=== PATIENT | female | born 1960 | race Caucasian/White ===

== ENCOUNTER → 2023-10-12 07:13 | Outpatient (REF) | payer OTHER, SELFPAY | LOC: DHCBC/DCA 07:13 | PROVIDERS: ATTENDING PHYSICIAN Internal Medicine Interventional Cardiology; FAMILY PHYSICIAN Nurse Practitioner Adult Health | DX: R07.9 Chest pain, unspecified (principal) | CPT/HCPCS: 78452; 93017; A9500 ==

== ENCOUNTER → 2023-11-03 07:19 | Outpatient (REF) | payer OTHER, SELFPAY | LOC: HWRAD 07:19 | PROVIDERS: ATTENDING PHYSICIAN Nurse Practitioner Adult Health | DX: R74.8 Abnormal levels of other serum enzymes (principal); R74.01 Elevation of levels of liver transaminase levels; R07.89 Other chest pain | CPT/HCPCS: 76700 ==

== ENCOUNTER → 2023-11-04 06:34 | Day surgery (SDC) | payer OTHER, SELFPAY | LOC: GI 06:34 | PROVIDERS: ATTENDING PHYSICIAN Internal Medicine Gastroenterology; FAMILY PHYSICIAN Nurse Practitioner Adult Health | DX: R13.10 Dysphagia, unspecified (principal); R07.9 Chest pain, unspecified; K44.9 Diaphragmatic hernia without obstruction or gangrene; Q39.9 Congenital malformation of esophagus, unspecified; K29.50 Unspecified chronic gastritis without bleeding; D72.820 Lymphocytosis (symptomatic) | CPT/HCPCS: 43239; 88305; 88341; 88342 ==

== ENCOUNTER → 2023-11-09 16:21 | Outpatient (REF) | payer OTHER, SELFPAY | LOC: WDC 16:21 | PROVIDERS: ATTENDING PHYSICIAN Nurse Practitioner Adult Health | DX: Z12.31 Encounter for screening mammogram for malignant neoplasm of breast (principal) | CPT/HCPCS: 77063; 77067 ==

== ENCOUNTER → 2023-11-11 13:39 | Outpatient (REF) | payer OTHER, SELFPAY | LOC: DHCBS HW 13:39 | PROVIDERS: ATTENDING PHYSICIAN Internal Medicine Interventional Cardiology; FAMILY PHYSICIAN Nurse Practitioner Adult Health | DX: R07.9 Chest pain, unspecified (principal) | CPT/HCPCS: 93306 ==

== ENCOUNTER → 2023-11-12 08:31 | Outpatient (REF) | payer OTHER, SELFPAY | LOC: RAD 08:31 | PROVIDERS: ATTENDING PHYSICIAN Internal Medicine Gastroenterology; FAMILY PHYSICIAN Nurse Practitioner Adult Health | DX: R13.19 Other dysphagia (principal) | CPT/HCPCS: 74221 ==

== ENCOUNTER → 2023-11-16 06:24 | Day surgery (SDC) | payer OTHER, SELFPAY | LOC: GI 06:24 | PROVIDERS: ATTENDING PHYSICIAN Internal Medicine Gastroenterology; FAMILY PHYSICIAN Nurse Practitioner Adult Health | DX: K22.2 Esophageal obstruction (principal); K44.9 Diaphragmatic hernia without obstruction or gangrene; R13.14 Dysphagia, pharyngoesophageal phase; R07.9 Chest pain, unspecified; R93.3 Abnormal findings on diagnostic imaging of other parts of digestive tract | CPT/HCPCS: 43249 ==

== ENCOUNTER → 2023-12-10 08:00 | Outpatient (REF) | payer OTHER, SELFPAY | LOC: RAD 08:00 | PROVIDERS: ATTENDING PHYSICIAN Physician Assistant; FAMILY PHYSICIAN Nurse Practitioner Adult Health | DX: R68.81 Early satiety (principal) | CPT/HCPCS: 78264; A9541 ==

== ENCOUNTER 2024-03-09 06:26 | Day surgery (SDC) | payer OTHER, SELFPAY ==
[2024-02-25 09:45] LABS: Hematocrit 35.8 % (37.0-47.0); Hemoglobin 12.5 g/dL (12.0-16.0); Mean Corp Hgb Conc. 34.9 g/dL (33.0-37.0); Mean Corpuscular Hgb 30.6 pg (27.0-31.0); Mean Corpuscular Volume 87.7 fL (81.0-99.0); Mean Platelet Volume 9.4 fL (7.4-10.4); Platelet Count 295 10^3/uL (130-400); Red Blood Cell Count 4.08 10^6/uL (4.20-5.40); Red Cell Dist. Width 13.6 % (11.5-14.5); White Blood Cell Count 5.6 10^3/uL (4.8-10.8)
[2024-02-25 10:28] LABS: Blood Urea Nitrogen 16 mg/dl (7-17); Calcium 9.7 mg/dl (8.4-10.2); Carbon Dioxide 35 mmol/L (22-30); Chloride 100 mmol/L (98-107); Glucose 96 mg/dl (70-99); Potassium 3.4 mmol/L (3.5-5.1); Sodium 138 mmol/L (135-145); eGFR > 60.00
[2024-02-25 10:34] VITALS: BMI 33.3
[2024-03-09] VITALS (11 sets, daily range): BP systolic 128–168; BP diastolic 76–89; BMI 33.3
[2024-03-09] MEDS: TYLENOL 1000 MG PO (10:15)
[2024-03-09] MEDS: NORMOSOL-R 1000 IV ×2 (10:27→16:32)
--- NOTE | 2024-03-09 15:26 | W.IMMPOSTOP ---
Addendum entered and electronically signed by Diaz Galicia MD 03/11/24 09:05:
[facility]# [id number]
Original Note:
Surgical Immed Post Op Note
-
Primary Surgeon: Frida
Assisting Surgeon: JULIUS Barcenas
Pre-op Diagnosis: Paraesophageal hernia and LUQ abdominal wall mass
Post-op Diagnosis: Paraesophageal hernia and LUQ abdominal wall mass
Procedure Performed: Laparoscopic paraesophageal hernia repair with Augustina fundoplication, intra-operative EGD, excision of LUQ abdominal wall mass
Anesthesia Type: General
Specimen / Cultures:
1. Abdominal wall mass
Estimated Blood Loss: 23 cc
Complications: None
Operative Findings:
1. Moderate PEH with 50% of stomach in chest, tight, dense omental and LEFT crural adhesions
2. > 3 cm esophageal mobilization, bl vagi identified, no pleural violation
3. Psoterior crural closure with 0 silk (2 pledget, 2 non-pledget)
4. 2 cm loose floppy Augustina fundoplication over 56 Fr Bougie
5. Post-repair EGD with no stricturing and appropriately oriented fundoplication
[2024-03-09] MEDS: DILAUDID 0.25 MG IV ×2 (16:01→16:23)
--- NOTE | 2024-03-09 17:28 | PTCARENOTE ---
Received pt from PACU in bed. VSS. AOx3, slightly drowsy. 99% on 2L NC. 5 lap sites ANAT w/ Dermabond on abdomen. Assessment and admission as documented.
[2024-03-09 17:47] LABS: Hematocrit 35.4 % (37.0-47.0); Hemoglobin 12.5 g/dL (12.0-16.0); Mean Corp Hgb Conc. 35.3 g/dL (33.0-37.0); Mean Corpuscular Hgb 30.3 pg (27.0-31.0); Mean Corpuscular Volume 85.7 fL (81.0-99.0); Platelet Count 258 10^3/uL (130-400); Red Blood Cell Count 4.13 10^6/uL (4.20-5.40); Red Cell Dist. Width 13.6 % (11.5-14.5)
[2024-03-09] MEDS: OFIRMEV 100 IV (17:51)
[2024-03-09] MEDS: DILAUDID 0.5 MG IV (20:29)
[2024-03-10] MEDS: OFIRMEV 100 IV ×3 (00:41→13:02)
[2024-03-10] MEDS: DILAUDID 0.5 MG IV ×5 (00:42→17:51)
[2024-03-10] MEDS: NORMOSOL-R 1000 IV ×2 (02:40→13:04)
[2024-03-10 03:39] VITALS: BP 138/72
--- NOTE | 2024-03-10 07:26 | W.PN.GS2 ---
Today's Communication / Plan
-
-- Dietary progression throughout the day clears --> fulls --> IDDM soft food
-- Pain control: Tylenol, IV Dilaudid, will start PO Oxycodone and Toradol if Hb OK on labs
-- Home medications
-- DC today pending progression
Assessment / Plan
-
Patient is a 63 yo F POD#1 s/p laparoscopic paraesophageal hernia repair and Augustina fundoplication, intraoperative EGD, excision of LUQ abdominal wall mass
Recovering well. No postoperative concerns.
-- Dietary progression throughout the day clears --> fulls --> IDDM soft food
-- Pain control: Tylenol, IV Dilaudid, will start PO Oxycodone and Toradol if Hb OK on labs
-- Continue IVF
-- OOB/ambulate
-- Home medications
-- DVT: Lovenox
-- DC today pending progression
Subjective Data
-
Date of Service: March 10, 2024
Reports on chest and shoulder soreness. Denies any nausea or vomiting. No reflux symptoms. No dizziness or lightheadedness. No fevers. Voiding. Minimal ambulation.
Objective Data
-
Intake and Output
03/09/24 03/10/24 03/11/24
06:59 06:59 06:59
Intake Total 1730 / 1730
Output Total 400 / 400
Balance 1330 / 1330
Intake:
Oral fluids 5 / 5
IV fluids (Total) 1525 / 1525
Norm 75 / 75
Normosol-R 1,000 ml @ 100 mls/ 50 / 50
hr IV .Q10H LUCY Rx#:[id number]
IV piggybacks 200 / 200
Output:
Urine, Webb 400 / 400
Other:
Number of approximated MODERATE 2
amounts of urine
Vital Signs
Temp Pulse Resp BP Pulse Ox
98.3 F 66 16 138/72 92
03/10/24 03:39 03/10/24 03:39 03/10/24 03:39 03/10/24 03:39 03/10/24 03:39
Calcium 9.7 mg/dl (8.4-10.2) 02/25/24 08:32
Physical Exam
-
Gen: NAD
Abd: soft, tender, ND, non-peritoneal, incisions c/d/i - no erythema, ecchymosis or drainage
[2024-03-10 07:43] VITALS: BP 126/63
[2024-03-10 08:26] LABS: Hematocrit 30.9 % (37.0-47.0); Mean Corp Hgb Conc. 35.6 g/dL (33.0-37.0); Mean Corpuscular Hgb 30.4 pg (27.0-31.0); Mean Corpuscular Volume 85.4 fL (81.0-99.0); Mean Platelet Volume 9.5 fL (7.4-10.4); Platelet Count 271 10^3/uL (130-400); Red Blood Cell Count 3.62 10^6/uL (4.20-5.40); Red Cell Dist. Width 13.4 % (11.5-14.5); White Blood Cell Count 13.2 10^3/uL (4.8-10.8)
[2024-03-10 08:46] LABS: Blood Urea Nitrogen 14 mg/dl (7-17); Calcium 8.5 mg/dl (8.4-10.2); Carbon Dioxide 29 mmol/L (22-30); Chloride 98 mmol/L (98-107); Estimated Creatinine Clearance 98 ml/min; Glucose 111 mg/dl (70-99); Potassium 3.8 mmol/L (3.5-5.1); Sodium 138 mmol/L (135-145); eGFR > 60.00
[2024-03-10 10:48] VITALS: BMI 33.3
[2024-03-10 11:16] VITALS: BP 122/68
[2024-03-10 15:34] VITALS: BP 114/56
[2024-03-10] MEDS: LOVENOX 40 MG SC (17:48)
[2024-03-10] MEDS: TORADOL 15 MG IV (21:06)
[2024-03-10] MEDS: MYLICON 80 MG PO (21:35)
[2024-03-10 23:31] VITALS: BP 124/65
[2024-03-11] MEDS: NORMOSOL-R 1000 IV (00:20)
[2024-03-11] MEDS: TORADOL 15 MG IV (06:15)
--- NOTE | 2024-03-11 07:13 | CM ---
met with patient at bedside.patient lives with in rnch home with 4 urban,then 4 steps down to bed and bath patient ambulates I ,is I with her adl.her pcp is donny EPPS and she uses [facility] in [place].she had a vn when she was
receiving iv abx for an infection.she has no hx of an ip rehab stay.
patient is pod #2 lap paraesophageal hernia repair/excision of luq abd mass.some nauea with soft food,on oxycodone/iv toradol,ivf,minimal ambulation.patient may dc home today if tolerating diet.patient will dc home with no needs when stable for dc.
[2024-03-11 07:48] VITALS: BP 163/86
--- NOTE | 2024-03-11 08:37 | W.PN.GS2 ---
Today's Communication / Plan
-
-- DC today pending dietary tolerance
Assessment / Plan
-
Patient is a 63 yo F POD#2 s/p laparoscopic paraesophageal hernia repair and Augustina fundoplication, intraoperative EGD, excision of LUQ abdominal wall mass
Recovering well. No postoperative concerns.
-- IDDM soft food
-- Pain control: Tylenol, Toradol, Oxycodone, IV Dilaudid PRN
-- Continue IVF
-- OOB/ambulate
-- Home medications
-- DVT: Lovenox
-- DC today pending progression
Subjective Data
-
Date of Service: March 11, 2024
Feels slightly improved. Notes some mild dysphagia with slow transit, but denies any vomiting or retching. No reflux symptoms. Continues to have some back and shoulder soreness. Voiding. Minimal ambulation.
Objective Data
-
Intake and Output
03/10/24 03/11/24 03/12/24
06:59 06:59 06:59
Intake Total 1730 / 1730 3850 / 3850
Output Total 400 / 400
Balance 1330 / 1330 3850 / 3850
Intake:
Oral fluids 5 / 5 1350 / 1350
IV fluids (Total) 1525 / 1525 2400 / 2400
Norm 75 / 75
Normosol-R 1,000 ml @ 100 mls/ 50 / 50
hr IV .Q10H LUCY Rx#:[id number]
IV piggybacks 200 / 200 100 / 100
Output:
Urine, Webb 400 / 400
Other:
Number of approximated MODERATE 2 2
amounts of urine
Vital Signs
Temp Pulse Resp BP Pulse Ox
98.5 F 48 16 163/86 95
03/11/24 07:48 03/11/24 07:48 03/11/24 07:48 08/23/24 07:48 03/11/24 07:48
Lab Results
03/10/24 07:15
03/10/24 07:15
Calcium 8.5 mg/dl (8.4-10.2) 03/10/24 07:15
Physical Exam
-
Gen: NAD
Abd: soft, minimal tenderness, ND, non-peritoneal, incisions c/d/i - no erythema, ecchymosis or drainage
[2024-03-11] MEDS: Hygroton 25 MG PO (09:24)
[2024-03-11] MEDS: ROXICODONE ORAL SOLUTION 5 MG PO ×3 (09:24→19:38)
[2024-03-11] MEDS: SYNTHROID 100 MCG PO (09:24)
--- NOTE | 2024-03-11 14:08 | CM ---
Reviewed the chart notes. CM continues to be available to patient/family and is monitoring medical plan for needs at discharge.
Plan: Discharge to home when medically stable. No needs.
[2024-03-11 15:45] VITALS: BP 128/68
[2024-03-11 16:33] VITALS: BP 128/68
[2024-03-11] MEDS: LOVENOX 40 MG SC (19:39)
[2024-03-11 23:00] VITALS: BP 135/73
[2024-03-12] MEDS: ROXICODONE ORAL SOLUTION 5 MG PO ×4 (03:39→22:12)
[2024-03-12 07:34] VITALS: BP 152/78
[2024-03-12] MEDS: SYNTHROID 100 MCG PO (07:55)
[2024-03-12] MEDS: Hygroton 25 MG PO (09:20)
--- NOTE | 2024-03-12 12:29 | W.PN.GS2 ---
Today's Communication / Plan
-
Pain control
Assessment / Plan
-
Patient is a 63 yo F POD#3 s/p laparoscopic paraesophageal hernia repair and Augustina fundoplication, intraoperative EGD, excision of LUQ abdominal wall mass
Recovering well. No postoperative concerns.
still with issues with pain, improving day by day
Hypertensive (suspect secondary to pain) otherwise AFVSS
-- Continue soft food diet
-- Pain control: Tylenol, Toradol, Oxycodone, IV Dilaudid PRN
-- Increase home tizanidine to BID prn
-- OOB/ambulate
-- Home medications
-- PRN Hydralazine IV
-- DVT: Lovenox
-- DC later today pending progression
Subjective Data
-
Date of Service: March 12, 2024
patient seen and examined at bedside with Dr. Huggins. Tolerating diet as long as she sticks to softer foods. Denies n/v. Pain in left shoulder (reproducible). OOB to chair.
Objective Data
-
Intake and Output
03/11/24 03/12/24 03/13/24
06:59 06:59 06:59
Intake Total 3850 / 3850 1900 / 1900
Balance 3850 / 3850 1900 / 1900
Intake:
Oral fluids 1350 / 1350 1500 / 1500
IV fluids (Total) 2400 / 2400 400 / 400
IV piggybacks 100 / 100
Other:
Number of approximated MODERATE 2 1
amounts of urine
Vital Signs
Temp Pulse Resp BP Pulse Ox
98.7 F 60 16 186/106 94
03/12/24 07:34 03/12/24 09:20 03/12/24 07:34 03/12/24 09:20 03/12/24 07:34
Lab Results
03/10/24 07:15
03/10/24 07:15
Calcium 8.5 mg/dl (8.4-10.2) 03/10/24 07:15
Physical Exam
-
Gen: NAD
Abd: soft, minimal tenderness, ND, non-peritoneal, incisions c/d/i - no erythema, ecchymosis or drainage
[2024-03-12] MEDS: ZANAFLEX 4 MG PO ×2 (12:51→22:12)
[2024-03-12] MEDS: APRESOLINE 10 MG IV (12:51)
[2024-03-12] MEDS: FLUSH (NSS) 1 FLUSH IV (12:55)
[2024-03-12 14:43] VITALS: BP 81/45
[2024-03-12] MEDS: NSS 250 IV (14:55)
[2024-03-12 16:04] VITALS: BP 94/57
[2024-03-12] MEDS: LOVENOX 40 MG SC (18:03)
[2024-03-12 18:13] VITALS: BP 134/73
[2024-03-12 23:04] VITALS: BP 146/73
[2024-03-13] MEDS: ROXICODONE ORAL SOLUTION 5 MG PO (02:59)
[2024-03-13 07:00] VITALS: BP 116/69
[2024-03-13] MEDS: Hygroton 25 MG PO (08:22)
[2024-03-13] MEDS: MYLICON 160 MG PO (08:22)
[2024-03-13] MEDS: ZANAFLEX 4 MG PO (08:23)
[2024-03-13] MEDS: SYNTHROID 100 MCG PO (08:23)
[2024-03-13] MEDS: TORADOL 15 MG IV (08:28)
--- NOTE | 2024-03-13 09:26 | W.PN.GS2 ---
Today's Communication / Plan
-
dispo planning
Assessment / Plan
-
Patient is a 63 yo F POD#4 s/p laparoscopic paraesophageal hernia repair and Augustina fundoplication, intraoperative EGD, excision of LUQ abdominal wall mass
AFVSS
Pain improving with tizanidine
-- Continue soft food diet
-- Pain control: Tylenol, Toradol, Oxycodone, IV Dilaudid PRN
-- Increase home tizanidine to BID prn
-- OOB/ambulate
-- Home medications
-- PRN Tizanidine
-- DVT: Lovenox
D/c to ome
Subjective Data
-
Date of Service: March 13, 2024
Patient seen and examined at bedside with Dr. Philip. Dorsey n/v. Tolerating soft foods/liquids. Pain improving. Some itching to incisions
Objective Data
-
Intake and Output
03/12/24 03/13/24 03/14/24
06:59 06:59 06:59
Intake Total 1900 / 1900 1081 / 1081
Balance 1900 / 1900 1081 / 1081
Intake:
Oral fluids 1500 / 1500 1081 / 1081
IV fluids (Total) 400 / 400
Other:
Number of approximated SMALL 2
amounts of urine
Number of approximated MODERATE 1 2
amounts of urine
Number of approximated LARGE 1
amounts of urine
Vital Signs
Temp Pulse Resp BP Pulse Ox
99.1 F 60 12 116/69 94
03/13/24 07:00 03/13/24 07:00 03/13/24 07:00 03/13/24 07:00 03/13/24 07:00
Lab Results
03/10/24 07:15
03/10/24 07:15
Calcium 8.5 mg/dl (8.4-10.2) 03/10/24 07:15
Physical Exam
-
Gen: NAD
Abd: soft, minimal tenderness, ND, non-peritoneal, incisions c/d/i - no erythema, ecchymosis or drainage
--- NOTE | 2024-03-13 09:30 | W.DS.TRANS ---
DC Summary - [employer]
-
Discharge Instructions:
Sleep Apnea Risk Low
Discharge Diagnosis/Procedures Laparoscopic paraesophageal hernia repair with
fundoplication and excision of LEFT chest wall
mass
Diet Other diet
Additional Diets Follow a post Augustina diet. Dietary handout
provided. Avoid large cuts of meat, dried
breads, or dry pastas. Avoid drinking with
straws and carbonated beverages. Chew food
thoroughly. Eat small frequent meals.
Activity Other activity,No strenuous activity
Additional Activity No heavy lifting (>20 lbs) or strenuous
activities for 4 weeks postoperatively
Driving Restrictions No driving if too sore or taking narcotics
Bathing Restrictions OK to Shower
Wound Care Keep incisions clean and dry. Glue will flake
off in 2 to 3 weeks. Stitches will dissolve.
Instructions:
Stand-Alone Forms:
Changes to Home Medications: No
Discharge Medications:
DC Medications w/original date entered in [employer]
acetaminophen 325 mg tablet 650 mg (2 x 325 mg) PO Q6HPRN PRN mild pain/ fever>100.5F 03/28/20
chlorthalidone 25 mg tablet 25 mg PO DAILY 10/07/23
levothyroxine 100 mcg tablet 100 mcg PO DAILY 10/07/23
biotin 10,000 mcg chewable tablet 1 mcg PO DAILY 02/24/24
potassium chloride 20 mEq tablet,extended release(part/cryst) 20 meq PO DAILY 02/24/24
acetaminophen 325 mg tablet 650 mg (2 x 325 mg) PO Q4HPRN PRN mild pain #1 tab 03/11/24
ibuprofen 200 mg tablet 400 - 600 mg (2 - 3 x 200 mg) PO Q6HPRN PRN moderate pain #1 tab 03/11/24
oxycodone 5 mg tablet 5 mg PO Q4HPRN PRN breakthrough/severe pain #10 tabs 03/11/24
tizanidine 4 mg tablet 4 mg PO BIDPRN PRN leg pain #14 tabs 03/13/24
Home Medication Changes
Pending Results: No
--- NOTE | 2024-03-13 11:32 | CM ---
Patient seen at bedside with present. Patient stated that she was eager to go home. Patient with no needs for VN supports at this time and for discharge today. CM will continue to follow for discharge planning needs.
Plan; home with no needs
[2024-03-13 11:50] VITALS: BP 121/60
== END 2024-03-13 12:00 | disposition home or self-care (01) ==
LOC: SDS 06:26
PROVIDERS: ATTENDING PHYSICIAN Surgery; FAMILY PHYSICIAN Nurse Practitioner Adult Health; OTHER PHYSICIAN Internal Medicine Gastroenterology; OTHER PHYSICIAN Internal Medicine Interventional Cardiology
DX: K44.9 Diaphragmatic hernia without obstruction or gangrene (principal); L72.0 Epidermal cyst
CPT/HCPCS: 43281; 11402; 88304; 36415; 71046; 80048; 85027; 93005; C1729

== ENCOUNTER → 2024-04-22 09:13 | Outpatient (REF) | payer OTHER, SELFPAY | LOC: RAD 09:13 | PROVIDERS: ATTENDING PHYSICIAN Surgery; FAMILY PHYSICIAN Nurse Practitioner Adult Health | DX: K44.9 Diaphragmatic hernia without obstruction or gangrene (principal) | CPT/HCPCS: 74246 ==

== ENCOUNTER 2024-05-19 15:32 | Day surgery (SDC) | payer OTHER, SELFPAY ==
[2024-05-19 13:40] VITALS: BMI 32.8
[2024-05-19 13:41] VITALS: BMI 32.8
[2024-05-19 13:43] VITALS: BP 174/84
[2024-05-19 14:56] VITALS: BP 138/99
[2024-05-19 15:00] VITALS: BP 144/120
[2024-05-19 15:15] VITALS: BP 164/84
== END 2024-05-19 15:34 | disposition home or self-care (01) ==
LOC: GI 15:32
PROVIDERS: ATTENDING PHYSICIAN Surgery
DX: R13.10 Dysphagia, unspecified (principal); K22.2 Esophageal obstruction
CPT/HCPCS: 43249; C1726

== ENCOUNTER 2024-09-01 06:27 | Day surgery (SDC) | payer OTHER, SELFPAY ==
[2024-09-01 13:05] VITALS: BMI 35.0
[2024-09-01 13:06] VITALS: BMI 35.0
[2024-09-01 13:09] VITALS: BP 156/92
[2024-09-01 14:45] VITALS: BP 129/69
[2024-09-01 15:00] VITALS: BP 137/84
[2024-09-01 15:15] VITALS: BP 154/78
== END 2024-09-01 15:30 | disposition home or self-care (01) ==
LOC: GI 06:27
PROVIDERS: ATTENDING PHYSICIAN Surgery
DX: R13.10 Dysphagia, unspecified (principal)
CPT/HCPCS: 43235; C1726

== ENCOUNTER 2024-11-23 06:23 | Day surgery (SDC) | payer OTHER, SELFPAY ==
[2024-11-10 12:32] LABS: Hematocrit 39.1 % (37.0-47.0); Hemoglobin 13.5 g/dL (12.0-16.0); Mean Corp Hgb Conc. 34.5 g/dL (33.0-37.0); Mean Corpuscular Hgb 30.4 pg (27.0-31.0); Mean Corpuscular Volume 88.1 fL (81.0-99.0); Mean Platelet Volume 10.2 fL (7.4-10.4); Platelet Count 267 10^3/uL (130-400); Red Blood Cell Count 4.44 10^6/uL (4.20-5.40); Red Cell Dist. Width 12.8 % (11.5-14.5); White Blood Cell Count 5.9 10^3/uL (4.8-10.8)
[2024-11-10 12:52] LABS: Blood Urea Nitrogen 17 mg/dl (7-17); Calcium 10.1 mg/dl (8.4-10.2); Carbon Dioxide 30 mmol/L (22-30); Chloride 103 mmol/L (98-107); Glucose 98 mg/dl (70-99); Potassium 3.8 mmol/L (3.5-5.1); Sodium 141 mmol/L (135-145); eGFR > 60.00
[2024-11-10 14:02] VITALS: BMI 33.3
[2024-11-23] VITALS (10 sets, daily range): BP systolic 104–147; BP diastolic 54–89; BMI 33.3
[2024-11-23] MEDS: NORMOSOL-R/PLASMALYTE-A 1000 IV (10:40)
[2024-11-23] MEDS: TYLENOL 1000 MG PO (10:50)
== END 2024-11-23 15:25 | disposition home or self-care (01) ==
LOC: SDS 06:23
PROVIDERS: ATTENDING PHYSICIAN Surgery; FAMILY PHYSICIAN Nurse Practitioner Adult Health
DX: K40.91 Unilateral inguinal hernia, without obstruction or gangrene, recurrent (principal); K41.90 Unilateral femoral hernia, without obstruction or gangrene, not specified as recurrent
CPT/HCPCS: 49651; 36415; 80048; 85027; 93005; C1781

== ENCOUNTER → 2025-05-24 15:21 | Outpatient (REF) | payer OTHER, SELFPAY | LOC: WDC 15:21 | PROVIDERS: ATTENDING PHYSICIAN Nurse Practitioner Adult Health | DX: Z12.31 Encounter for screening mammogram for malignant neoplasm of breast (principal) | CPT/HCPCS: 77063; 77067 ==

== ENCOUNTER → 2025-06-16 07:10 | Outpatient (REF) | payer OTHER, SELFPAY | LOC: HWRAD 07:10 | PROVIDERS: ATTENDING PHYSICIAN Nurse Practitioner Adult Health | DX: Z13.820 Encounter for screening for osteoporosis (principal) | CPT/HCPCS: 77080 ==